=== PATIENT | female | born 1990 | race Two or more races ===

== ENCOUNTER 2021-01-24 19:28 | Emergency (ER) | payer OTHER ==
[~2021-01-24] VITALS: Ht 175.3 cm; Wt 81.6 kg
[2021-01-24] MEDS ORDERED: AMOXICILLIN500 MG PO (22:44)
== END 2021-01-24 22:48 | disposition home or self-care (01) ==
LOC: ER 19:28
DX: J03.90 Acute tonsillitis, unspecified (principal)